=== PATIENT | female | born 1945 | race Caucasian/White ===

== ENCOUNTER 2024-02-03 15:04 | Emergency (ER) | payer MEDICARE, MEDICAID ==
[~2024-02-03] VITALS: Ht 154.9 cm; Wt 54.5 kg
[2024-02-03 15:49] VITALS: TEMP 98.7
[2024-02-03] MEDS ORDERED: ACET-2247 PO (16:18)
[2024-02-03] MEDS ORDERED: CEFA1VIA IV (16:18)
[2024-02-03] MEDS ORDERED: MULT-1192 PO (16:18)
[2024-02-03] MEDS ORDERED: APIX5TAB PO (17:07)
[2024-02-03] MEDS: APIXABAN 5 MG TABLET PO ONE (17:17)
[2024-02-03 18:33] VITALS: BP 112/70; PULSE 75; RESP 16; O2SAT 95
== END 2024-02-03 22:50 | disposition home or self-care (01) ==
LOC: EMS 15:13
DX: I82.412 Acute embolism and thrombosis of left femoral vein (principal); F03.92 Unspecified dementia, unspecified severity, with psychotic disturbance; Z88.2 Allergy status to sulfonamides; Z86.718 Personal history of other venous thrombosis and embolism
CPT/HCPCS: 99283